=== PATIENT | female | born 1950 | race Caucasian/White ===

== ENCOUNTER → 2017-10-13 | Outpatient (CLI) | payer MEDICARE | END | disposition home or self-care (01) | LOC: LABPAT 11:29 | PROVIDERS: ATTEND Orthopaedic Surgery | DX: Z01.812 Encounter for preprocedural laboratory examination (principal); M16.11 Unilateral primary osteoarthritis, right hip | CPT/HCPCS: 86850; 86900; 86901; 87070 ==

== ENCOUNTER → 2017-10-13 | Outpatient (CLI) | payer MEDICARE | END | disposition home or self-care (01) | LOC: LABWHC1 11:32 | PROVIDERS: ATTEND Internal Medicine | DX: E03.9 Hypothyroidism, unspecified (principal) | CPT/HCPCS: 36415; 84443 ==

== ENCOUNTER 2017-10-24 05:34 | Inpatient (IN) | payer MEDICARE ==
[2017-10-16 09:29] VITALS: BMI 29.6
[~2017-10-24 05:34] MED LIST: LIDOCAINE 1% 20 ML VIAL (10MG/ML) FOR IV START INTRADERMA PRN; MELOXICAM 7.5 MG TAB PO ONE; MIDAZOLAM 2 MG/2 ML VIAL IV PRN; SCOPOLAMINE 1.5MG/72HR PATCH TRANSDERM ONE; fentaNYL (PF) 50 MCG/ML 2 ML AMP IV PRN
[2017-10-24] MEDS ORDERED: TRANEXAMIC ACID 1,000 MG in SODIUM CHLORIDE 0.9% 50 ML IVPB ONE ×4 (06:00)
[2017-10-24] MEDS ORDERED: ACETAMINOPHEN TAB 500 MG TAB PO ONE (06:00)
[2017-10-24] MEDS ORDERED: ceFAZolin IN SWFI 2 GM/20 ML SYRINGE IVP ONE (06:00)
[2017-10-24] MEDS ORDERED: ROPIVACAINE 246.25 MG, EPINEPHrine 0.5 MG, KETOROLAC 30 MG, cloNIDine HCL/PF 80 MCG, WA... MISCELLANE ONE ×5 (06:01)
[2017-10-24] MEDS: LACTATED RINGERS 1,000 ML IV SCH ×2 (06:54→20:05)
[2017-10-24] MEDS: DEXAMETHASONE SOD PHOSPHATE 10 MG/ML 1 ML VIAL IV ONE ×2 (06:54→06:55)
[2017-10-24] MEDS ORDERED: MORPHINE SULFATE (PF) 0.3 MG/0.3 ML SYR ONE (07:00)
[2017-10-24] MEDS ORDERED: LACTATED RINGERS 1,000 ML BAG IV ONE (07:00)
[2017-10-24] MEDS ORDERED: HEPARIN SODIUM,PORCINE 10,000 UNIT/ML 1 ML VIAL ONE (07:00)
[2017-10-24] MEDS ORDERED: PROPOFOL 10 MG/ML 20 ML VIAL IV ONE (07:00)
[2017-10-24] MEDS ORDERED: PHENYLEPHRINE-0.9% NACL SYG 1 MG/10 ML SYRINGE ONE (07:00)
[2017-10-24] MEDS ORDERED: fentaNYL (PF) 50 MCG/ML 2 ML AMP ONE (07:00)
[2017-10-24] MEDS ORDERED: SODIUM CHLORIDE 0.9% 100 ML BAG ONE (07:00)
[2017-10-24] MEDS ORDERED: MIDAZOLAM 2 MG/2 ML VIAL ONE (07:00)
[2017-10-24] MEDS ORDERED: ePHEDrine SULFATE/0.9% NACL/PF 50 MG/5 ML SYRINGE IV ONE (07:00)
[2017-10-24] MEDS ORDERED: TRANEXAMIC ACID 1,000 MG/10 ML VIAL ONE (07:00)
[2017-10-24] MEDS ORDERED: ceFAZolin 3,000 MG in SODIUM CHLORIDE 0.9% IRRIGATIO 3,000 ML IRRIGATION ONE (07:39)
[2017-10-24] MEDS ORDERED: LACTATED RINGERS 1,000 ML IV ONE (08:15)
--- NOTE | 2017-10-24 08:33 | P.OP ---
Date of Procedure: 10/24/17 Preoperative Diagnosis: Severe osteoarthritis right hip Postoperative Diagnosis: Severe osteoarthritis right hip Procedure(s) Performed: Right total hip arthroplasty with a direct anterior approach Implants: Bazzi and nephew Polarstem size 1 standard Bazzi & Nephew R3, 3 hole acetabular shell, 48 mm Bazzi & Nephew reflection 6.5 mm cancellus screw, 20 mm 2 Bazzi & Nephew R3, XLPE 20 acetabular liner Bazzi & Nephew Oxinium femoral head 32 m, +8 All components were press-fit. The articulation is Oxinium on polyethylene. Anesthesia: spinal Surgeon: Horacoi Waterman Waterproofer Helper #1: Lou Saleem Estimated Blood Loss (ml): 300 (128 mL returned in Cell Saver) Pathology: other (Femoral head) Condition: stable Disposition: PACU Indications for Procedure: After failure of conservative treatment we discussed the surgical and nonsurgical treatment options at length. Patient wishes to proceed with a total hip arthroplasty with a direct anterior approach. Complications specific to this procedure were discussed at length, including but not limited to infection, leg length discrepancy, dislocation, and nerve injury. Patient is aware of all these complications and informed consent was obtained Operative Findings: The operative findings are consistent with severe osteoarthritis of the right hip Description of Procedure: Patient was seen and evaluated in the preoperative area, consent was reviewed, and the surgical site was marked with a skin marker. Patient was then brought to the operating room and given prophylactic antibiotics intravenously. 1 g of Tranexamic acid was also given. A spinal anesthetic was administered by the anesthesia department. The patient was then placed on the [place] table with the bony prominences well-padded. The hip area was then prepped and draped in usual sterile fashion. A universal timeout was then performed, which confirmed the patient's name, surgical site, ALLERGIES, and procedure being performed. Next the incision site was located at 1 cm distal and 1 cm lateral to the anterior superior iliac spine. The skin and subcutaneous tissues were sharply incised. Incision was carefully dissected down to the fascia overlying the tensor fascia jeremías muscle. This fascia was then incised in line with the incision. Next, using blunt finger dissection, the tensor fascia jeremías muscle was dissected off its investing fascia. The muscle was then carefully retracted laterally with a cobra retractor over the lateral neck of the femur. Next, the circumflex vessels were identified and cauterized using the AquaMantis device. The anterior hip capsule was then exposed. The capsule was then opened and an inverted T fashion. Cobra retractors were then placed intracapsularly. The proximal femur was then visualized. The femoral neck was then osteotomized appropriate level above the lesser trochanter. Small amount of traction was placed with the [place] table. A small wedge of bone was then removed from the remaining femoral head. Next, using a corkscrew femoral head was easily removed from the acetabulum. On gross visual inspection, the femoral head had complete loss of articular cartilage in multiple periarticular osteophytes. Attention was then turned to the acetabulum. the acetabulum was exposed and any remaining labrum was excised. Sequential reaming of the acetabulum was performed using fluoroscopic guidance. When the appropriate size was reached, a trial was then placed. The position and fit of the trial was checked with fluoroscopy. The trial was then removed. Then, using fluoroscopic guidance, the final implant was impacted at 20 of anteversion and 40 of abduction, and fully seated in the acetabulum. 2 screws were then placed in the acetabulum. Again fluoroscopy was used to check position of the screws. Next, the liner was then impacted, with a 20 elevated liner located in the anterior superior quadrant. Component locking was confirmed. Attention was then directed to the femur. With the aid of the [place] table, the femur was externally rotated to approximately 130, extended, and abducted under the opposite leg. A side hook was then placed under the proximal femur, and the side hook elevator was used to elevate the proximal femur. Retractors were then placed. A capsular release was performed, as well as a release of the conjoined tendon, which afforded excellent visualization of the proximal femur. Next, a box osteotome was used to lateralize the proximal femur. A merchandise supervisor was then used to locate the femoral canal. Sequential broaching was then performed with appropriate size which afforded excellent fixation in the proximal femur. A trial was then placed with appropriate head and neck, and the hip was gently reduced with the aid of the [place] table. Fluoroscopy was then used to check position of the components, as well as to ensure equal leg lengths. The hip was then gently dislocated and the trials were then removed. Final implants were then impacted and the hip was again reduced. Final fluoroscopic x-rays confirmed that the components were in anatomic position, as well as equal leg lengths. The hip was also taken through range of motion, and found to be stable. The hip was then copiously irrigated with antibiotic solution with pulsatile lavage. The hip was then irrigated with Irrisept solution. The soft tissues were then injected with a ropivacaine solution, which consisted of 246.25 mg of ropivacaine, 0.5 mg of epinephrine, 30 mg of Toradol, 80 g of clonidine, and 48.45 mL of sterile water, for a total of 100 mL of fluid injected. A second dose of 1 g of Tranexamic acid was also given. the fascia was then closed with 2-0 strata fix suture. The subcutaneous tissue was closed with 3-0 Vicryl. The subcuticular tissue was closed with 3-0 strata fix suture. The skin was then closed with Dermabond glue and a sterile silver dressing. The patient was then transferred to the recovery room in stable condition. The placement assistant SHANEL Clement was required due to the complexity of surgery, and the need for skilled assistant finance manager for positioning, draping, exposure, retraction, and closure of the wound.
[2017-10-24] MEDS ORDERED: HYDROcodone/APAP 5-325MG 1 EACH TAB PO PRN (08:51)
[2017-10-24] MEDS ORDERED: hydrOXYzine PAMOATE 25 MG CAP PO PRN (08:51)
[2017-10-24] MEDS ORDERED: ONDANSETRON 4 MG/2 ML VIAL IVP PRN (08:51)
[2017-10-24] MEDS ORDERED: DIAZEPAM 5 MG TAB PO PRN ×2 (08:51)
[2017-10-24] MEDS ORDERED: HYDROmorphone 0.5 MG/0.5 ML SYRINGE IVP PRN ×3 (08:51)
[2017-10-24] MEDS ORDERED: NALOXONE 0.4 MG/ML 1 ML VIAL IV PRN ×2 (08:51→09:47)
[2017-10-24] MEDS ORDERED: MAGNESIUM HYDROXIDE 2,400 MG/10 ML CUP PO PRN (08:51)
--- NOTE | 2017-10-24 09:12 | XR ---
EXAMINATION TYPE: XR Hip Limited RT DATE OF EXAM: 10/24/2017 COMPARISON: NONE HISTORY: Postop TECHNIQUE: One view submitted. FINDINGS: There is a prosthetic hip in near anatomic alignment. There is soft tissue edema and emphysema. IMPRESSION: 1. Postoperative change. Appears in near-anatomic alignment.
--- NOTE | 2017-10-24 09:13 | FL ---
EXAMINATION TYPE: FL guidance operating room DATE OF EXAM: 10/24/2017 HISTORY: Flouroscopy time 40 seconds of fluoroscopy provided. IMPRESSION: 1. Fluoroscopy time.
[2017-10-24] MEDS ORDERED: MORPHINE SULFATE 2 MG/ML SYRINGE IVP PRN (09:47)
[2017-10-24] MEDS ORDERED: KETOROLAC 30 MG/ML 1 ML VIAL IVP PRN (09:47)
[2017-10-24] MEDS ORDERED: NALBUPHINE 10 MG/ML VIAL (10ML MDV) IV PRN (09:47)
[2017-10-24] MEDS: SODIUM CHLORIDE 0.9% 1,000 ML IV SCH (10:19)
[2017-10-24] MEDS: ASPIRIN 325 MG TAB PO SCH ×2 (10:21→20:00)
--- NOTE | 2017-10-24 14:28 | P.CONS ---
History of Present Illness - Reason for Consult Consult date: 10/24/17 Medical management - History of Present Illness This is a 67-year-old female patient of Dr. Hawkins with past medical history of fibromyalgia, Graves' disease, migraine headaches, irritable bowel syndrome, myocardial infarction, skin cancer, seasonal ALLERGIES. Patient has been admitted to the hospital by Dr. Horacio Arguellooff is status post right total hip arthroplasty anterior approach. Patient denies any postop consultations. Blood pressure has been stable. She denies any nausea or vomiting. Noted the patient's heart rate is running in the 40s and 50s which is apparently normal for the patient. She is on Corgard at home which will be placed on hold for now and reassess tomorrow. Patient denies having any nausea or vomiting. Pain is currently controlled. Past Medical History Past Medical History: Cancer, Fibromyalgia, Myocardial Infarction (MS), Musculoskeletal Disorder, Thyroid Disorder Additional Past Medical History / Comment(s): migraines, degenerative joint disease, varicose veins, irritable bowel syndrome, hx graves disease, RBC in urine-seeing urologist, hx skin cancer on her face, seasonal ALLERGIES Last Myocardial Infarction Date:: unknown History of Any Multi-Drug Resistant Organisms: None Reported Past Surgical History: Back Surgery, Hysterectomy Additional Past Surgical History / Comment(s): spinal fusion by Dr. Hurtado at [place], colonoscopy, jamar cataract removal and intraocular lens implants, series of spiinal injections, Past Anesthesia/Blood Transfusion Reactions: Previous Problems w/ Anesthesia, Motion Sickness, Postoperative Nausea & Vomiting (PONV) Additional Past Anesthesia/Blood Transfusion Reaction / Comm: "hard for me to wake up, I typically get a migraine" Past Psychological History: No Psychological Hx Reported Smoking Status: Former smoker Past Alcohol Use History: None Reported Additional Past Alcohol Use History / Comment(s): quit smoking , smoked socially for 3 yrs no illicit drug use. No alcohol use. She denies any marijuana or street drug use. She has worked as a psychotherapist social worker in the past. Past Drug Use History: None Reported - Past Family History Mother Family Medical History: No Reported History Additional Family Medical History / Comment(s): Mother at age 87 from cirrhosis of the liver of unknown etiology. Father Additional Family Medical History / Comment(s): Father in his 80s from Alzheimer's dementia Brother(s) Additional Family Medical History / Comment(s): Patient has 7 brothers and sisters and one half sister has from a myocardial infarction. Daughter(s) Additional Family Medical History / Comment(s): She has one daughter age 38 with history of Saleem syndrome, deafness, kidney disease. No sons. Medications and Allergies Home Medications Medication Instructions Recorded Confirmed Type Ergocalciferol [Vitamin D2] 50,000 unit PO WESA 12/03/15 10/24/17 History Etodolac [Lodine] 400 mg PO BID 12/03/15 10/24/17 History Levothyroxine Sodium [Synthroid] 150 mcg PO MOTUWETHFR 12/03/15 10/24/17 History Nadolol [Corgard] 20 mg PO HS 12/03/15 10/24/17 History Pregabalin [Lyrica] 150 mg PO HS 12/03/15 10/24/17 History Baclofen 5 mg PO BID PRN 10/16/17 10/24/17 History Fexofenadine HCl [Jennyfer Allergy] 180 mg PO DAILY 10/16/17 10/24/17 History Fluticasone Nasal [place] [Flonase 1 spray EA NOSTRIL BID 10/16/17 10/24/17 History Nasal [place]] Hydrocodone/Acetaminophen [[place] 0.5 tab PO Q4H PRN 10/16/17 10/24/17 History 10-325] Kerydin 1 applicate TOPICAL HS 10/16/17 10/24/17 History Pregabalin [Lyrica] 75 mg PO DAILY 10/16/17 10/24/17 History SUMAtriptan SUCCINATE [Imitrex] 100 mg PO DAILY PRN 10/16/17 10/24/17 History Terbinafine [LamISIL] 250 mg PO HS 10/16/17 10/24/17 History Allergies Allergy/AdvReac Type Severity Reaction Status Date / Time adhesive tape Allergy Rash/Hives Verified 10/24/17 09:11 latex Allergy Rash/Hives Verified 10/24/17 09:11 Milk Containing Products Allergy Unknown Verified 10/24/17 09:11 [Dairy] oats Allergy Unknown Verified 10/24/17 09:11 yeast, dried Allergy Unknown Verified 10/24/17 09:11 codeine AdvReac Unknown Verified 10/24/17 09:11 levofloxacin [From Levaquin] AdvReac Diarrhea Verified 10/24/17 09:11 naproxen [From Naprosyn] AdvReac Diarrhea Verified 10/24/17 09:11 BERRIES Allergy Unknown Uncoded 10/24/17 06:15 GRAIN Allergy Unknown Uncoded 10/24/17 06:15 Physical Exam Vitals: Vital Signs Temp Pulse Pulse Resp BP Pulse Ox 10/24/17 10:13 42 L 10/24/17 10:00 44 L 16 114/62 97 10/24/17 09:45 42 L 16 110/60 98 10/24/17 09:30 45 L 16 109/58 98 10/24/17 09:15 50 L 16 116/62 99 10/24/17 09:00 46 L 16 125/66 100 10/24/17 08:45 98.2 F 49 L 16 112/63 98 10/24/17 06:13 98.7 F 51 L 16 148/72 97 Intake and Output 10/23/17 10/24/17 10/24/17 22:59 06:59 14:59 Intake Total 200 1501 Output Total 300 Balance 200 1201 Intake: IV 200 1501 Output: Estimated Blood Loss 300 Other: Weight 77.111 kg Gen: This is a 67-year-old female patient. She is in bed and appears to be couple and in no acute distress HEENT: Head is atraumatic, normocephalic. Pupils equal, round. Sclerae is anicteric. Adjunctive pink. Mucous members of the mouth are slightly dry. NECK: Supple. No JVD. No lymphadenopathy. No thyromegaly. LUNGS: Clear to auscultation. No wheezes or rhonchi. No intercostal retractions. HEART: Regular rate and rhythm. No murmur. ABDOMEN: Soft. Bowel sounds are present. No masses. No tenderness. EXTREMITIES: No pedal edema. No calf tenderness. Dorsalis pedis +2 bilaterally. Patient has small dressing to the right anterior hip with no breakthrough bleeding or drainage. NEUROLOGICAL: Patient is awake, alert and oriented x3. Cranial nerves 2 through 12 are grossly intact. Assessment and Plan Plan: 1. Osteoarthritis of the right hip status post total hip arthroplasty, anterior approach. Patient has had no postop complications. Continue current pain management. Continue incentive spirometry to reduce incidence of atelectasis and hospital-acquired pneumonia. Patient is on aspirin 325 mg twice daily for DVT prophylaxis. PT OT per orthopedics. 2. Hypothyroidism. Continue Synthroid 150 g Monday through Monday. 3. Hypertension. Patient is on Corgard which will be on hold due to bradycardia and reassessed for tomorrow. 4. Fibromyalgia, stable. 5. Seasonal ALLERGIES. Flonase will be resumed. Discharge plan: To be determined Impression and plan of care have been directed as dictated by the signing physician. Senait Pryor nurse practitioner acting as scribe for signing physician.
[2017-10-24] MEDS: ceFAZolin IN SWFI 2 GM/20 ML SYRINGE IVP SCH ×2 (14:50→22:39)
[2017-10-24] MEDS: FLUTICASONE 50MCG/SPRAY NASAL 16GM EA NOSTRIL SCH (20:01)
[2017-10-24] MEDS: SENNOSIDES-DOCUSATE SODIUM 1 EACH TAB PO SCH (20:02)
[2017-10-24] MEDS ORDERED: SUMAtriptan SUCCINATE 50 MG TAB PO PRN (21:01)
[2017-10-24] MEDS: PREGABALIN 75 MG CAP PO SCH (22:38)
[2017-10-25] MEDS: SODIUM CHLORIDE 0.9% 1,000 ML IV SCH ×3 (00:41→20:11)
[2017-10-25] MEDS: LEVOTHYROXINE 75 MCG TAB PO SCH (06:19)
[2017-10-25 07:41] LABS: Basophils % (A) 0 %; Eosinophils % (A) 1 %; HCT 33.5 % (34.0-46.0); HGB 11.1 gm/dL (11.4-16.0); Lymphocytes # (A) 1.4 k/uL (1.0-4.8); Lymphocytes % (A) 22 %; MCH 29.2 pg (25.0-35.0); MCHC 33.2 g/dL (31.0-37.0); MCV 87.7 fL (80.0-100.0); Mean Platelet Volume 7.8; Monocytes # (A) 0.5 k/uL (0-1.0); Monocytes % (A) 7 %; Neutrophils # (A) 4.3 k/uL (1.3-7.7); Neutrophils % (A) 69 %; Platelet Count 154 k/uL (150-450); RBC 3.82 m/uL (3.80-5.40); RDW 13.4 % (11.5-15.5); WBC 6.2 k/uL (3.8-10.6)
[2017-10-25 09:19] LABS: Glucose,Whole Blood 107 mg/dL (75-99)
--- NOTE | 2017-10-25 10:21 | P.PN ---
Progress Note - Text Anesthesia POD 1. Patient is status post right THR under spinal anesthesia with intra-thecal preservative free morphine 300 g. Mild pruritus, good post- op analgesia, and no headache or other complication.
[2017-10-25] MEDS: PREGABALIN 75 MG CAP PO SCH ×2 (11:08→20:10)
[2017-10-25] MEDS: ASPIRIN 325 MG TAB PO SCH ×2 (11:08→20:10)
[2017-10-25] MEDS: MELOXICAM 7.5 MG TAB PO SCH (11:08)
[2017-10-25] MEDS ORDERED: FLUCONAZOLE 150 MG TAB PO STA (11:29)
--- NOTE | 2017-10-25 11:29 | P.DS ---
Providers Date of admission: 10/24/17 05:34 Expected date of discharge: 10/25/17 Attending physician: Horacio Waterman Consults: 10/24/17 08:51 Consult Physician Routine Consulting Provider: Toan Hawkins Consult Reason/Comments: medical management Do you want consulting provider notified?: Yes 10/24/17 10:19 Consult Physician Routine Consulting Provider: Justo Keller Reason/Comments: medical management Do you want consulting provider notified?: Yes Primary care physician: Toan Hawkins - Discharge Diagnosis(es) (1) Primary osteoarthritis of right hip Current Visit: Yes Status: Acute (2) S/P total hip arthroplasty Current Visit: Yes Status: Acute Hospital Course: This is a 67-year-old female with known history of degenerative arthritis of the right hip. The patient presents for evaluation. After discussion and consideration patient elects to proceed with total hip arthroplasty. The patient is seen preoperatively by Dr. Waterman and medically cleared for surgery by their primary care physician. Patient is admitted to [facility] on 10/24/2017 for total hip arthroplasty. The procedures performed without complication or sequelae. The patient is doing well postoperatively. Labs and vital signs are stable on day of discharge. On day of discharge patient's hip incision is healing well. There is minimal erythema. There is no drainage noted at this time. There is minimal soft tissue swelling to the hip and thigh. Patient has full foot and ankle motion without difficulty or pain. Neurovascular status to the right lower extremity is intact. Patient is discharged home in good condition. Please see med rec for accurate list of home medications. Plan - Discharge Summary Discharge Rx Participant: Yes New Discharge Prescriptions: New Aspirin 325 mg PO BID #60 tab HYDROcodone/APAP 5-325MG [[place] 5-325] 1 - 2 tab PO Q4-6H PRN #90 tab PRN Reason: Pain Sennosides [Senokot] 1 tab PO BID #60 tablet No Action Ergocalciferol [Vitamin D2] 50,000 unit PO WESA Pregabalin [Lyrica] 150 mg PO HS Levothyroxine Sodium [Synthroid] 150 mcg PO MOTUWETHFR Etodolac [Lodine] 400 mg PO BID Nadolol [Corgard] 20 mg PO HS Baclofen 5 mg PO BID PRN PRN Reason: Pain Fexofenadine HCl [Jennyfer Allergy] 180 mg PO DAILY Fluticasone Nasal [place] [Flonase Nasal [place]] 1 spray EA NOSTRIL BID Hydrocodone/Acetaminophen [[place] 10-325] 0.5 tab PO Q4H PRN PRN Reason: Pain Kerydin 1 applicate TOPICAL HS Pregabalin [Lyrica] 75 mg PO DAILY SUMAtriptan SUCCINATE [Imitrex] 100 mg PO DAILY PRN PRN Reason: migraines Terbinafine [LamISIL] 250 mg PO HS Discharge Medication List Ergocalciferol [Vitamin D2] 50,000 unit PO WESA 12/03/15 [History] Etodolac [Lodine] 400 mg PO BID 12/03/15 [History] Levothyroxine Sodium [Synthroid] 150 mcg PO MOTUWETHFR 12/03/15 [History] Nadolol [Corgard] 20 mg PO HS 12/03/15 [History] Pregabalin [Lyrica] 150 mg PO HS 12/03/15 [History] Baclofen 5 mg PO BID PRN 10/16/17 [History] Fexofenadine HCl [Jennyfer Allergy] 180 mg PO DAILY 10/16/17 [History] Fluticasone Nasal [place] [Flonase Nasal [place]] 1 spray EA NOSTRIL BID 10/16/17 [ History] Hydrocodone/Acetaminophen [[place] 10-325] 0.5 tab PO Q4H PRN 10/16/17 [History] Kerydin 1 applicate TOPICAL HS 10/16/17 [History] Pregabalin [Lyrica] 75 mg PO DAILY 10/16/17 [History] SUMAtriptan SUCCINATE [Imitrex] 100 mg PO DAILY PRN 10/16/17 [History] Terbinafine [LamISIL] 250 mg PO HS 10/16/17 [History] Aspirin 325 mg PO BID #60 tab 10/25/17 [Rx] HYDROcodone/APAP 5-325MG [[place] 5-325] 1 - 2 tab PO Q4-6H PRN #90 tab 10/25/17 [ Rx] Sennosides [Senokot] 1 tab PO BID #60 tablet 10/25/17 [Rx] Follow up Appointment(s)/Referral(s): Horacio Waterman DO [Doctor of Osteopathic Medicine] - 11/13/17 1:30 pm (with Lou) Activity/Diet/Wound Care/Special Instructions: Weightbearing as tolerated with walker Leave dressing intact. Dressing may be removed by home care nurse in 10 days. May shower with dressing on. Follow-up with [facility] in 2 weeks, please call with any questions or concerns [phone] Discharge Disposition: HOME WITH HOME HEALTH SERVICES
[2017-10-25] MEDS: FLUTICASONE 50MCG/SPRAY NASAL 16GM EA NOSTRIL SCH ×2 (12:23→20:10)
--- NOTE | 2017-10-25 13:58 | P.PN ---
Subjective Progress Note Date: 10/25/17 This is a 67-year-old female patient of Dr. Hawkins with past medical history of fibromyalgia, Graves' disease, migraine headaches, irritable bowel syndrome, myocardial infarction, skin cancer, seasonal ALLERGIES. Patient has been admitted to the hospital by Dr. Horacio Arguellooff is status post right total hip arthroplasty anterior approach. Patient denies any postop consultations. Blood pressure has been stable. She denies any nausea or vomiting. Noted the patient's heart rate is running in the 40s and 50s which is apparently normal for the patient. She is on Corgard at home which will be placed on hold for now and reassess tomorrow. Patient denies having any nausea or vomiting. Pain is currently controlled. 10/25: Patient had syncopal type episode today that required sternal rub. She states she was feeling fine was sitting for a while and then stood up. Nursing documented low blood pressure. She is status post 1 L IV fluid bolus. She states she is feeling better at this time. She had faint feeling and cold sweats. She denies any chest pain or shortness of breath. Blood pressure is now 103/65 with pulse of 60. Corgard has not been resumed. Her blood sugar was 107 at the time of episode. She states she has had a previous episode like this when she had her back surgery. Objective - Vital Signs Vital signs: Vital Signs Temp 98.0 F 10/25/17 00:24 Pulse 71 10/25/17 09:30 Resp 17 10/25/17 06:00 BP 98/62 10/25/17 09:30 Pulse Ox 99 10/25/17 09:25 Intake & Output 10/24/17 10/25/17 10/25/17 18:59 06:59 18:59 Intake Total 1861 1560 Output Total 600 Balance 1261 1560 Weight 77.111 kg Intake: IV 1501 Intake, IV Titration 480 Amount Sodium Chloride 0.9% 1, 480 000 ml @ 65 mls/hr IV . [id number] [place] Rx#:[id number] Oral 360 1080 Output: Urine 300 Estimated Blood Loss 300 Other: Voiding Method Toilet # Voids 3 # Bowel Movements 0 - Exam Gen: This is a 67-year-old female patient. She is flat on recliner and in no acute distress HEENT: Head is atraumatic, normocephalic. Pupils equal, round. Sclerae is anicteric. Adjunctive pink. Mucous members of the mouth are slightly dry. NECK: Supple. No JVD. No lymphadenopathy. No thyromegaly. LUNGS: Clear to auscultation. No wheezes or rhonchi. No intercostal retractions. HEART: Regular rate and rhythm. No murmur. ABDOMEN: Soft. Bowel sounds are present. No masses. No tenderness. EXTREMITIES: No pedal edema. No calf tenderness. Dorsalis pedis +2 bilaterally. Patient has small dressing to the right anterior hip with no breakthrough bleeding or drainage. NEUROLOGICAL: Patient is awake, alert and oriented x3. Cranial nerves 2 through 12 are grossly intact. - Labs CBC & Chem 7: 10/25/17 07:27 Labs: Abnormal Lab Results - Last 24 Hours (Table) 10/25/17 10/25/17 Range/Units 07:27 09:14 Hgb 11.1 L (11.4-16.0) gm/dL Hct 33.5 L (34.0-46.0) % POC Glucose (mg/dL) 107 H (75-99) mg/dL Assessment and Plan Plan: 1. Osteoarthritis of the right hip status post total hip arthroplasty, anterior approach. Patient has had no postop complications. Continue current pain management. Continue incentive spirometry to reduce incidence of atelectasis and hospital-acquired pneumonia. Patient is on aspirin 325 mg twice daily for DVT prophylaxis. PT OT per orthopedics. 2. Hypothyroidism. Continue Synthroid 150 g Monday through Monday. 3. Hypertension. Patient is on Corgard which will be on hold due to bradycardia and reassessed for tomorrow. 4. Fibromyalgia, stable. 5. Seasonal ALLERGIES. Flonase will be resumed. 6. Syncopal episode secondary to vasovagal. Patient is status post 1 L of IV fluid. Corgard kept on hold today. Discharge plan: Home with home care tomorrow Impression and plan of care have been directed as dictated by the signing physician. Senait Pryor nurse practitioner acting as scribe for signing physician.
[2017-10-25 16:14] VITALS: RESP 16
[2017-10-25] MEDS: LACTATED RINGERS 1,000 ML IV SCH (20:03)
[2017-10-25] MEDS: SENNOSIDES-DOCUSATE SODIUM 1 EACH TAB PO SCH (20:11)
[2017-10-26] MEDS: HYDROcodone/APAP 5-325MG 1 EACH TAB PO PRN ×2 (04:14→11:25)
[2017-10-26] MEDS: LEVOTHYROXINE 75 MCG TAB PO SCH (06:26)
[2017-10-26 07:36] LABS: Glucose,Whole Blood 107 mg/dL (75-99)
[2017-10-26] MEDS: SODIUM CHLORIDE 0.9% 1,000 ML IV SCH (08:10)
[2017-10-26] MEDS: ASPIRIN 325 MG TAB PO SCH (08:11)
[2017-10-26] MEDS: FLUTICASONE 50MCG/SPRAY NASAL 16GM EA NOSTRIL SCH (08:11)
[2017-10-26] MEDS: LACTATED RINGERS 1,000 ML IV SCH (08:11)
[2017-10-26] MEDS: MELOXICAM 7.5 MG TAB PO SCH (08:13)
[2017-10-26] MEDS: PREGABALIN 75 MG CAP PO SCH (08:13)
--- NOTE | 2017-10-26 08:37 | P.PN ---
Subjective Progress Note Date: 10/26/17 This is a 67-year-old female who is status post right total hip arthroplasty. This is postoperative day #1. Patient states that she is feeling dizzy again this morning. Patient describes the dizziness as feeling like she will faint. Patient is complaining of pain to the right hip. Patient denies any fever/chills , numbness, weakness, tingling, abdominal pain, shortness of breath or chest pain. Objective - Vital Signs Vital signs: Vital Signs Temp 99.7 F H 10/26/17 01:30 Pulse 76 10/26/17 01:30 Resp 16 10/26/17 01:30 BP 147/81 10/26/17 01:30 Pulse Ox 98 10/26/17 01:30 Intake & Output 10/25/17 10/26/17 10/26/17 18:59 06:59 18:59 Intake Total 800 2045 Balance 800 2045 Intake: Intake, IV Titration 800 695 Amount Sodium Chloride 0.9% 1, 800 695 000 ml @ 100 mls/hr IV . Q10H [place] Rx#:[id number] Oral 1350 Other: Voiding Method Toilet # Voids 2 # Bowel Movements 0 - Exam Vital signs are stable. Patient is in no acute distress and is alert and oriented 3. Calf is soft and mildly tender to palpation. Dressing is clean, dry, and intact. Patient has full foot and ankle motion without pain or difficulty. Neurovascular status and circulatory status are intact. - Labs CBC & Chem 7: 10/25/17 07:27 Labs: Abnormal Lab Results - Last 24 Hours (Table) 10/25/17 10/26/17 Range/Units 09:14 07:31 POC Glucose (mg/dL) 107 H 107 H (75-99) mg/dL Assessment and Plan (1) Primary osteoarthritis of right hip Current Visit: Yes Status: Acute Code(s): M16.11 - UNILATERAL PRIMARY OSTEOARTHRITIS, RIGHT HIP SNOMED Code(s): 553616702 (2) S/P total hip arthroplasty Current Visit: Yes Status: Acute Code(s): Z96.649 - PRESENCE OF UNSPECIFIED ARTIFICIAL HIP JOINT SNOMED Code(s): 841096901448 Plan: Continue routine postop care. Continue antocoagulation. Weightbearing as tolerated with a walker. Leave dressing in place for 10 days. Anticipate discharge home in the near future.
[2017-10-26 08:44] VITALS: TEMP 99
--- NOTE | 2017-10-26 10:05 | US ---
EXAMINATION TYPE: US venous doppler duplex LE RT DATE OF EXAM: 10/26/2017 9:54 AM COMPARISON: NONE CLINICAL HISTORY: pain. right hip replacement 10-24 SIDE PERFORMED: Right TECHNIQUE: The lower extremity deep venous system is examined utilizing real time linear array sonog venu with graded compression, doppler sonography and color-flow sonography. VESSELS IMAGED: External Iliac Vein (EIV) Common Femoral Vein Deep Femoral Vein Greater Saphenous Vein * Femoral Vein Popliteal Vein (* superficial vessels) Right Leg: Negative for DVT IMPRESSION: 1. No diagnostic evidence of DVT.
[2017-10-26] MEDS ORDERED: FLUDROCORTISONE 0.1 MG TAB PO SCH (11:00)
[2017-10-26 11:57] VITALS: BP 146/75; PULSE 56
--- NOTE | 2017-10-26 12:54 | P.PN ---
Subjective his is a 67-year-old female patient of Dr. Hawkins with past medical history of fibromyalgia, Graves' disease, migraine headaches, irritable bowel syndrome, myocardial infarction, skin cancer, seasonal ALLERGIES. Patient has been admitted to the hospital by Dr. Horacio Arguellooff is status post right total hip arthroplasty anterior approach. Patient denies any postop consultations. Blood pressure has been stable. She denies any nausea or vomiting. Noted the patient's heart rate is running in the 40s and 50s which is apparently normal for the patient. She is on Corgard at home which will be placed on hold for now and reassess tomorrow. Patient denies having any nausea or vomiting. Pain is currently controlled. 10/25: Patient had syncopal type episode today that required sternal rub. She states she was feeling fine was sitting for a while and then stood up. Nursing documented low blood pressure. She is status post 1 L IV fluid bolus. She states she is feeling better at this time. She had faint feeling and cold sweats. She denies any chest pain or shortness of breath. Blood pressure is now 103/65 with pulse of 60. Corgard has not been resumed. Her blood sugar was 107 at the time of episode. She states she has had a previous episode like this when she had her back surgery. 10/26: Patient was evaluated with family at bedside today, she was noted to be sitting up in the bedside chair. She reports she feels well she denies any dizziness, she is not had any further episodes of syncope. Orthostatics have been negative. She'll be started on fludrocortisone 0.05 mg daily for next few days, will follow-up with primary care early next week and most likely discontinue fludrocortisone at this time. Objective - Vital Signs Vital signs: Vital Signs Temp 99.0 F 10/26/17 08:00 Pulse 56 L 10/26/17 11:45 Resp 16 10/26/17 08:00 BP 146/75 10/26/17 11:45 Pulse Ox 97 10/26/17 08:00 Intake & Output 10/25/17 10/26/17 10/26/17 18:59 06:59 18:59 Intake Total 800 2045 Balance 800 2045 Intake: Intake, IV Titration 800 695 Amount Sodium Chloride 0.9% 1, 800 695 000 ml @ 100 mls/hr IV . Q10H [facility] Rx#:[id number] Oral 1350 Other: Voiding Method Toilet # Voids 2 2 # Bowel Movements 0 - Exam Gen: This is a 67-year-old female patient. She is flat on recliner and in no acute distress HEENT: Head is atraumatic, normocephalic. Pupils equal, round. Sclerae is anicteric. Adjunctive pink. Mucous members of the mouth are slightly dry. NECK: Supple. No JVD. No lymphadenopathy. No thyromegaly. LUNGS: Clear to auscultation. No wheezes or rhonchi. No intercostal retractions. HEART: Regular rate and rhythm. No murmur. ABDOMEN: Soft. Bowel sounds are present. No masses. No tenderness. EXTREMITIES: No pedal edema. No calf tenderness. Dorsalis pedis +2 bilaterally. Patient has small dressing to the right anterior hip with no breakthrough bleeding or drainage. NEUROLOGICAL: Patient is awake, alert and oriented x3. Cranial nerves 2 through 12 are grossly intact. - Labs CBC & Chem 7: 10/25/17 07:27 Labs: Abnormal Lab Results - Last 24 Hours (Table) 10/26/17 Range/Units 07:31 POC Glucose (mg/dL) 107 H (75-99) mg/dL Assessment and Plan Plan: 1. Osteoarthritis of the right hip status post total hip arthroplasty, anterior approach. Patient has had no postop complications. Continue current pain management. Continue incentive spirometry to reduce incidence of atelectasis and hospital-acquired pneumonia. Patient is on aspirin 325 mg twice daily for DVT prophylaxis. PT OT per orthopedics. 2. Hypothyroidism. Continue Synthroid 150 g Monday through Monday. 3. Hypertension. Patient is on Corgard which will be on hold due to bradycardia 4. Fibromyalgia, stable. 5. Seasonal ALLERGIES. Flonase will be resumed. 6. Syncopal episode secondary to vasovagal. Fludrocortisone added. Discharge plan: Home with home care today The above impression and plan of care have been discussed and directed by signing physician. Irma Duffy nurse practitioner acting as scribe for signing physician.
== END 2017-10-26 15:35 | disposition home health service (06) | DRG 470 ==
LOC: 2ORMAIN 05:34 → 3SUR 09:58
PROVIDERS: ADMIT Orthopaedic Surgery; ATTEND Orthopaedic Surgery
PROC: 30233N0 Transfusion of Autologous Red Blood Cells into Peripheral Vein, Percutaneous Approach (ICD-10-PCS; 2017-10-24)
PROC: 0SR906A Replacement of Right Hip Joint with Oxidized Zirconium on Polyethylene Synthetic Substitute, Uncemented, Open Approach (ICD-10-PCS; principal; 2017-10-24 07:00)
DX: M16.11 Unilateral primary osteoarthritis, right hip (principal); E66.9 Obesity, unspecified; E55.9 Vitamin D deficiency, unspecified; I10 Essential (primary) hypertension; G43.909 Migraine, unspecified, not intractable, without status migrainosus; K58.9 Irritable bowel syndrome, unspecified; I25.2 Old myocardial infarction; M19.072 Primary osteoarthritis, left ankle and foot; M85.88 Other specified disorders of bone density and structure, other site; M47.816 Spondylosis without myelopathy or radiculopathy, lumbar region; E89.0 Postprocedural hypothyroidism; J30.2 Other seasonal allergic rhinitis; I83.90 Asymptomatic varicose veins of unspecified lower extremity; M79.7 Fibromyalgia; R73.03 Prediabetes; R55 Syncope and collapse; L29.9 Pruritus, unspecified; M43.10 Spondylolisthesis, site unspecified; Z68.29 Body mass index [BMI] 29.0-29.9, adult; Z79.890 Hormone replacement therapy; Z79.51 Long term (current) use of inhaled steroids; Z79.899 Other long term (current) drug therapy; Z98.1 Arthrodesis status; Z90.710 Acquired absence of both cervix and uterus; Z85.828 Personal history of other malignant neoplasm of skin; Z98.42 Cataract extraction status, left eye; Z98.41 Cataract extraction status, right eye; Z96.1 Presence of intraocular lens; Z87.891 Personal history of nicotine dependence; Z88.5 Allergy status to narcotic agent; Z88.8 Allergy status to other drugs, medicaments and biological substances; Z88.1 Allergy status to other antibiotic agents; Z91.02 Food additives allergy status; Z91.040 Latex allergy status; Z91.018 Allergy to other foods; Z91.048 Other nonmedicinal substance allergy status; Z91.011 Allergy to milk products; Z83.79 Family history of other diseases of the digestive system; Z82.0 Family history of epilepsy and other diseases of the nervous system; Z82.49 Family history of ischemic heart disease and other diseases of the circulatory system; Z84.1 Family history of disorders of kidney and ureter; Z82.2 Family history of deafness and hearing loss; Z82.79 Family history of other congenital malformations, deformations and chromosomal abnormalities
CPT/HCPCS: 73501; 85025; 86850; 86891; 86900; 86901; 88300

== ENCOUNTER → 2018-01-05 | Outpatient (CLI) | payer MEDICARE ==
--- NOTE | 2018-01-05 12:29 | US ---
EXAMINATION TYPE: US kidneys/renal and bladder DATE OF EXAM: 01/05/2018 COMPARISON: None CLINICAL HISTORY: 67-year-old female R31.9 Hematuria. TECHNIQUE: Multiple sonographic images of the kidneys and bladder are obtained. FINDINGS: Right Kidney: 9.8 x 3.8 x 4.3 cm Left Kidney: 9.9 x 5.4 x 4.5 cm No hydronephrosis on either side. Partial distention of the bladder limits its evaluation. Bilateral Jets seen: Yes IMPRESSION: No hydronephrosis. No specific abnormality seen by ultrasound.
== END | disposition home or self-care (01) ==
LOC: RADUSWWP 08:52
PROVIDERS: ATTEND Urology
DX: R31.9 Hematuria, unspecified (principal)
CPT/HCPCS: 76770

== ENCOUNTER → 2022-01-19 | Outpatient (CLI) | payer MEDICARE ==
--- NOTE | 2022-01-21 18:53 | MM ---
Reason for Exam: Screening (asymptomatic). Last mammogram was performed 17 year(s) and 0 month(s) ago. Patient History: Menarche at age 12. First Full-Term at age 29. Left ovary removed at age 55. Right ovary removed at age 55. Hysterectomy at age 55. Postmenopausal. Sister had breast cancer, age 69. Risk Values: Kaia 5 year model risk: 3.5%. NCI Lifetime model risk: 8.8%. Prior Study Comparison: No prior studies available for comparison. Tissue Density: There are scattered fibroglandular densities. Findings: Analyzed By CAD. There is no suspicious group of microcalcifications or new suspicious mass in either breast. Overall Assessment: Negative, BI-RAD 1 Management: Screening Mammogram of both breasts in 1 year. A clinical breast exam by your physician is recommended on an annual basis and results should be correlated with mammographic findings. Electronically signed and approved by: Shaq Sanders DO
== END | disposition home or self-care (01) ==
LOC: RADMAMWWP 14:02
PROVIDERS: ATTEND Student in an Organized Health Care Education/Training Program
DX: Z12.31 Encounter for screening mammogram for malignant neoplasm of breast (principal); Z78.0 Asymptomatic menopausal state; Z80.3 Family history of malignant neoplasm of breast
CPT/HCPCS: 77063; 77067

== ENCOUNTER → 2023-06-15 | Outpatient (CLI) | payer MEDICARE ==
--- NOTE | 2023-06-15 08:50 | MR ---
EXAMINATION TYPE: MR brain wo con DATE OF EXAM: 06/15/2023 7:01 AM CLINICAL INDICATION:Female, 73 years old with history of R41.3 TIA; PHH, Memory loss, TIA. COMPARISON: 04/21/2012. TECHNIQUE: Multi planar, multi sequence imaging was performed through the brain including: T1, T2, In version recovery, Diffusion weighted imaging, and gradient echo imaging. No gadolinium was given. FINDINGS: Mild cerebral atrophy with proportional dilation of ventricular system. Scattered foci of high T2 s ignal intensity are seen within the periventricular white matter. Midline structures show no abnormal ity. Diffusion-weighted imaging shows no evidence of restricted diffusion. The susceptibility weighte d images do not reveal any evidence for micro-hemorrhage. 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 The bone marrow signal is within normal limits. Paranasal sinuses and mastoid air cells: No significant paranasal sinus disease. Visualized orbits: Bilateral aphakia IMPRESSION: 1. No evidence of intracranial mass or acute/subacute infarct. 2. Nonspecific white matter changes, likely secondary to small vessel ischemic disease.
== END | disposition home or self-care (01) ==
LOC: RADMRIMAIN 06:12
PROVIDERS: ATTEND Psychiatry & Neurology Neurology
DX: R41.3 Other amnesia (principal); G47.9 Sleep disorder, unspecified; R90.89 Other abnormal findings on diagnostic imaging of central nervous system
CPT/HCPCS: 70551

== ENCOUNTER → 2023-11-08 | Outpatient (CLI) | payer MEDICARE ==
--- NOTE | 2023-11-08 13:36 | XR ---
EXAMINATION TYPE: XR KUB DATE OF EXAM: 11/08/2023 COMPARISON: NONE HISTORY: Pain TECHNIQUE: One view abdominal series FINDINGS: The osseous structures are intact. The bowel gas pattern is nonspecific. Lung bases are clear. Scol iosis with severe degenerative disc disease. Postsurgical changes lower lumbar spine and right hip. M oderate arthropathy left hip. Benign calcifications in the pelvis. SI joint arthropathy. Lung bases c lear. IMPRESSION: 1. Nonspecific abdomen. No obstruction.
== END | disposition home or self-care (01) ==
LOC: RADXRMAIN 13:07
PROVIDERS: ATTEND Family Medicine
DX: R10.9 Unspecified abdominal pain (principal)
CPT/HCPCS: 74018

== ENCOUNTER → 2024-03-12 | Outpatient (CLI) | payer MEDICARE ==
[2024-03-12 10:12] LABS: Basophils # (A) 0.01 X 10*3/uL (0.00-0.10); Basophils % (A) 0.2 %; Eosinophils % (A) 2.2 %; HCT 42.7 % (37.2-46.3); HGB 14.2 g/dL (12.0-15.0); Lymphocytes # (A) 1.59 X 10*3/uL (0.90-5.00); Lymphocytes % (A) 35.4 %; MCHC 33.3 g/dL (32.0-37.0); MCV 87.1 FL (80.0-97.0); Mean Platelet Volume 11.2 FL (9.5-12.2); Monocytes # (A) 0.42 X 10*3/uL (0.20-1.00); Monocytes % (A) 9.4 %; NRBC Per 100 WBC 0 X 10*3/uL (0.00-0.01); Neutrophils # (A) 2.36 X 10*3/uL (1.80-7.70); Neutrophils % (A) 52.6 %; Platelet Count 183 X 10*3/uL (140-440); RDW 12.6 % (11.5-14.5); WBC 4.49 X 10*3/uL (4.50-10.00)
[2024-03-12 10:34] LABS: ALT 21 U/L (8-44); AST 27 U/L (13-35); Albumin 4.2 g/dL (3.8-4.9); Albumin/Globulin Ratio 1.75 Ratio (1.60-3.17); Alkaline Phosphatase 84 U/L (41-126); BUN/Creat Ratio 16.14 Ratio (12.00-20.00); Blood Urea Nitrogen 11.3 mg/dL (9.0-27.0); Calcium 9.4 mg/dL (8.7-10.3); Carbon Dioxide 24.1 mmol/L (21.6-31.8); Chloride 100 mmol/L (96-109); Chol/HDL Ratio 2.01 Ratio; Globulin 2.4 g/dL (1.6-3.3); Glucose 90 mg/dL (70-110); LDL Cholesterol,Calculated 66.1 mg/dL (0.0-131.0); Potassium 4.4 mmol/L (3.5-5.5); Sodium 133 mmol/L (135-145); Total Bilirubin 0.5 mg/dL (0.3-1.2); Total Protein 6.6 g/dL (6.2-8.2); VLDL Calculation 11.28 mg/dL (5.00-40.00)
== END | disposition home or self-care (01) ==
LOC: LABWHC1 07:18
PROVIDERS: ATTEND Internal Medicine
DX: E78.2 Mixed hyperlipidemia (principal); D69.6 Thrombocytopenia, unspecified; E03.9 Hypothyroidism, unspecified; R74.8 Abnormal levels of other serum enzymes
CPT/HCPCS: 36415; 80053; 80061; 84439; 84443; 85025

== ENCOUNTER → 2024-08-26 | Outpatient (CLI) | payer MEDICARE ==
[2024-08-26 09:49] LABS: Appearance,Urine Clear (Clear); Bilirubin,Urine Negative (Negative); Blood,Urine Negative (Negative); Color,Urine Colorless; Glucose,Urine (UA) Negative (Negative); Ketones,Urine Negative (Negative); Leukocyte Esterase,Urine Negative (Negative); Nitrite,Urine Negative (Negative); Protein,Urine Negative (Negative); Specific Gravity,Urine 1.009 (1.001-1.035); Urobilinogen,Urine <2.0 mg/dL (<2.0)
[2024-08-26 15:41] LABS: Basophils # (A) 0.02 X 10*3/uL (0.00-0.10); Basophils % (A) 0.4 %; Eosinophils # (A) 0.09 X 10*3/uL (0.04-0.35); HCT 42.9 % (37.2-46.3); HGB 13.9 g/dL (12.0-15.0); Lymphocytes # (A) 1.22 X 10*3/uL (0.90-5.00); Lymphocytes % (A) 27.4 %; MCH 28.5 pg (27.0-32.0); MCHC 32.4 g/dL (32.0-37.0); MCV 87.9 FL (80.0-97.0); Mean Platelet Volume 11.7 FL (9.5-12.2); NRBC Per 100 WBC 0 X 10*3/uL (0.00-0.01); Neutrophils # (A) 2.72 X 10*3/uL (1.80-7.70); Platelet Count 180 X 10*3/uL (140-440); RBC 4.88 X 10*6/uL (4.10-5.20); RDW 13.8 % (11.5-14.5); WBC 4.46 X 10*3/uL (4.50-10.00)
[2024-08-26 15:52] LABS: Chol/HDL Ratio 2.05 Ratio
[2024-08-26 15:53] LABS: ALT 22 U/L (8-44); AST 27 U/L (13-35); Albumin 4.1 g/dL (3.8-4.9); Albumin/Globulin Ratio 1.86 Ratio (1.60-3.17); Alkaline Phosphatase 77 U/L (41-126); BUN/Creat Ratio 20.43 Ratio (12.00-20.00); Blood Urea Nitrogen 14.3 mg/dL (9.0-27.0); Calcium 9.2 mg/dL (8.7-10.3); Carbon Dioxide 26.4 mmol/L (21.6-31.8); Chloride 106 mmol/L (96-109); Globulin 2.2 g/dL (1.6-3.3); Glucose 90 mg/dL (70-110); LDL Cholesterol,Calculated 64.3 mg/dL (0.0-131.0); Potassium 4.4 mmol/L (3.5-5.5); Sodium 142 mmol/L (135-145); Total Bilirubin 0.4 mg/dL (0.3-1.2); Total Protein 6.3 g/dL (6.2-8.2)
== END | disposition home or self-care (01) ==
LOC: LABWHC1 08:49
PROVIDERS: ATTEND Family Medicine
DX: R10.9 Unspecified abdominal pain (principal); R19.5 Other fecal abnormalities; R79.89 Other specified abnormal findings of blood chemistry; R74.8 Abnormal levels of other serum enzymes; E78.5 Hyperlipidemia, unspecified; R39.15 Urgency of urination
CPT/HCPCS: 36415; 80053; 80061; 81003; 85025

== ENCOUNTER → 2024-09-04 | Outpatient (CLI) | payer MEDICARE ==
--- NOTE | 2024-09-04 11:38 | XR ---
EXAMINATION TYPE: XR KUB DATE OF EXAM: 09/04/2024 11:27 AM COMPARISON: None. CLINICAL INDICATION: Female, 74 years old with history of R10.9, TECHNIQUE: Single view of the abdomen. FINDINGS: Small bowel demonstrates no evidence for dilatation or air fluid levels. Gas and fecal material is seen in non-distended colon. Mild fecal stasis seen. No convincing evidence for pneumoperitoneum. No unusual calcifications. The lung bases are clear. The osseous structures are intact.Scoliosis and postoperative changes lumbar spine IMPRESSION: 1. Overall nonobstructive bowel gas pattern. [facility], , 09/04/2024 11:36 AM
== END | disposition home or self-care (01) ==
LOC: RADXRMAIN 11:10
PROVIDERS: ATTEND Family Medicine
DX: R10.9 Unspecified abdominal pain (principal); R19.5 Other fecal abnormalities; R14.0 Abdominal distension (gaseous)
CPT/HCPCS: 74018